=== PATIENT | female | born 1940 | race Caucasian/White ===

== ENCOUNTER 2018-01-08 11:19 | Emergency (ER) | payer OTHER ==
[~2018-01-08] VITALS: Ht 175.3 cm; Wt 63.5 kg
[2018-01-08] MEDS ORDERED: PNEU16DI2 (11:41)
[2018-01-08] MEDS ORDERED: FLECAINIDE ACET50 MG PO (11:41)
== END 2018-01-08 17:48 | disposition home or self-care (01) ==
LOC: ER 11:19
DX: M94.0 Chondrocostal junction syndrome [Tietze] (principal)